=== PATIENT | male | born 1975 | race Caucasian/White ===

== ENCOUNTER 2022-11-09 17:11 | Emergency (ER) | payer SELFPAY ==
[2022-11-09 17:25] VITALS: BP 137/79; PULSE 77; RESP 17; TEMP 36.6; O2SAT 97; BMI 28.2
--- NOTE | 2022-11-09 17:50 | ED.GENADULT ---
HPI - General Adult General Chief complaint: Extremity Pain/Injury, Lower Stated complaint: R toe cut and possible infection Time Seen by Provider: 11/09/22 17:49 History of Present Illness HPI narrative: Patient reports worsening ulcer under right great. First moticed this three weeks ago, has been using bacitracin. Is type one diabetic. 47-year-old man presenting to the emergency department with complaint of an ulcer. Been going on now most 3 weeks. Very tender to palpation over the open aspect. Does have a history of type 1 diabetes and blood sugars have been between 200 and 300; usually much better controlled. No fever. He is worried about infection has been having drainage on exam looks to be serous drainage. I note also rather marked pes planus and does have shoe inserts but has not been wearing them. Thinks that started with a hole in the sock that caused a small irritation that has just expanded. Has been treating with bacitracin and wrapping foam tape around it. Related Data Home Medications Medication Instructions Recorded Confirmed amlodipine 5 mg-benazepril 20 mg 1 cap PO DAILY 11/09/22 11/09/22 capsule fenofibrate micronized PO 11/09/22 insulin glargine 100 unit/mL (3 37 unit subcut DAILY 11/09/22 11/09/22 mL) subcutaneous pen (Lantus Solostar U-100 Insulin) insulin lispro 100 unit/mL 15 unit subcut BID 11/09/22 11/09/22 subcutaneous cartridge (Humalog U-100 Insulin) levothyroxine 112 mcg capsule 112 mcg PO DAILY 11/09/22 11/09/22 Allergies Allergy/AdvReac Type Severity Reaction Status Date / Time No Known Drug Allergies Allergy Verified 11/09/22 17:41 Review of Systems Status of ROS: Reports: 6 or more systems reviewed and unremarkable except as noted in History and below Exam Narrative: Exam Narrative: Pleasant. NAD. Has appropriately sized shoes. Examination of the right foot in question shows deformity/absent of the nail on the right great toe. There is mild calor and mild erythema over the medial and lateral aspect of the great toe extending to the MTP joint. The plantar surface of the toe is a nearly 1 inch diameter clean ulceration with some edematous, thickened skin more medially. Oozing some serous fluid. Pad is evident. I do not appreciate any purulent fluid collection. Heart is in a regular rate and rhythm. Const: Vital Signs, click to edit/add: Vital Signs - 24 hr 11/09/22 17:25 11/09/22 19:29 11/09/22 19:39 Temperature 97.8 F 98.2 F 98.2 F Pulse Rate [Right] 77 71 71 Respiratory Rate 17 16 16 Blood Pressure [Ri ght Upper Arm] 137/79 125/74 125/74 Pulse Oximetry 97 97 Oxygen Delivery Me thod Room Air Room Air Documenting provider has reviewed patient's vital signs: yes Course Vital Signs Vital signs: Initial Vital Signs Temperature 97.8 F 11/09/22 17:25 Temperature Source Temporal Artery Scan 11/09/22 17:25 Pulse Rate 77 11/09/22 17:25 Respiratory Rate 17 11/09/22 17:25 Blood Pressure 137/79 11/09/22 17:25 Blood Pressure Mean 98 11/09/22 17:25 Pulse Oximetry 97 11/09/22 17:25 Oxygen Delivery Method Room Air 11/09/22 17:25 Vital Signs Temperature 97.8 F 11/09/22 17:25 Pulse Rate 77 11/09/22 17:25 Respiratory Rate 17 11/09/22 17:25 Blood Pressure 137/79 11/09/22 17:25 Pulse Oximetry 97 11/09/22 17:25 Oxygen Delivery Method Room Air 11/09/22 17:25 Temperature 98.2 F 11/09/22 19:39 Pulse Rate 71 11/09/22 19:39 Respiratory Rate 16 11/09/22 19:39 Blood Pressure 125/74 11/09/22 19:39 Pulse Oximetry 97 11/09/22 19:29 Oxygen Delivery Method Room Air 11/09/22 19:29 Medical Decision Making MDM Narrative Medical decision making narrative: Seems more to be reactive inflammation but I think it would be prudent to initiate antibiotics here. Seems more inflammatory reaction then frankly cellulitis. Think this will take some time to heal and require intervention with wound care clinic. Possibly Podiatry. This is not the kind of wound I would associate with osteomyelitis at this time. Will also try to create an offloading dressing/bandage. Will attempt to set up an appointment with wound care. Placed antibiotic ointment and Band-Aid and constructed a donut from layers a foam tape. Placed over the top of the Band-Aid. Wrapped with gauze. He has already purchased some large and temporary shoes. I would encourage more rest. His job I would think could be more sedentary but he says he does have to walk quite a bit. See patient discharge plan Discharge Plan Discharge Clinical Impression: Diabetes, Toe ulcer Patient Disposition: Home, Self-Care Condition: Stable Additional Instructions: Yes. Try to avoid further traumatizing it, offloading as you and I have attempted here today. Can change dressing 1-2 times daily. Gently wash once a day but do not scrape off whitish yellow tissue that may be forming. Further advice from wound clinic. Return for marked increase in pain, swelling, fever. Be sure to elevate your legs at rest as we discussed at the level of your heart her above. Tomorrow call the wound clinic for appt at [phone] Cephalexin from [facility]. Prescriptions: No Action Humalog U-100 Insulin 100 unit/mL cartridge 15 unit subcut BID insulin glargine [Lantus Solostar U-100 Insulin] 100 unit/mL (3 mL) insulin pen 37 unit subcut DAILY amlodipine-benazepril 5-20 mg capsule 1 cap PO DAILY levothyroxine 112 mcg capsule 112 mcg PO DAILY fenofibrate micronized [Tricor] PO Stand Alone Forms: [employer] Info Instructions
[2022-11-09 19:29] VITALS: BP 125/74; PULSE 71; RESP 16; TEMP 36.8; O2SAT 97
[2022-11-09 19:39] VITALS: BP 125/74; PULSE 71; RESP 16; TEMP 36.8
== END 2022-11-09 19:40 | disposition home or self-care (01) ==
PROVIDERS: Emergency Provider Family Medicine
DX: E10.621 Type 1 diabetes mellitus with foot ulcer (principal); L97.519 Non-pressure chronic ulcer of other part of right foot with unspecified severity; Z79.4 Long term (current) use of insulin
CPT/HCPCS: 99282; 99283; 99284